=== PATIENT | female | born 1990 | race African-American/Black ===

== ENCOUNTER 2021-09-07 18:04 | Emergency (ER) | payer MEDICAID ==
[~2021-09-07] VITALS: Ht 167.6 cm; Wt 67.4 kg
[2021-09-07 18:08] VITALS: BP 116/66
--- NOTE | 2021-09-07 18:33 | PHYS DOC ---
Past Medical History Past Surgical History: Tubal ligation General Adult EDM: Chief Complaint: VAGINAL PROBLEM HPI: HPI: Patient is a 31 year old female with a history of Bartholin cyst presenting to the ED today complaining of Bartholin cyst to the right labia, symptoms began 2 days ago. She states her MANAGER RENTAL started on clindamycin two days ago but it is not working as fast as it usually does. She states she has a surgery to fix this problem in March 2022. She states she is visiting from [place] and would like to be switched from clindamycin to Bactrim. She states she does not want it to be drained. She is also requesting something for pain. Review of Systems: Review of Systems: Constitutional: Denies fever or chills. [] Female : Reports Bartholin cyst Musculoskeletal: Denies back pain or joint pain. [] Integument: Denies rash. [] Neurologic: Denies headache, focal weakness or sensory changes. [] Psychiatric: Denies depression or anxiety. [] Heart Score: C/O Chest Pain: N/A Risk Factors: Risk Factors: DM, Current or recent (<one month) smoker, HTN, HLP, family history of CAD, obesity. Risk Scores: Score 0 - 3: 2.5% MACE over next 6 weeks - Discharge Home Score 4 - 6: 20.3% MACE over next 6 weeks - Admit for Clinical Observation Score 7 - 10: 72.7% MACE over next 6 weeks - Early Invasive Strategies Physical Exam: PE: Constitutional: Well developed, well nourished, no acute distress, non-toxic appearance. [] Female : Right labia majora inner aspect with a mild sized Bartholin cyst, no erythema, fluctuance noted to the area. Multiple skin deformities noted on the right labia majora from multiple draining of the cyst Skin: Warm, dry, no erythema, no rash. [] Back: No tenderness, no CVA tenderness. [] Extremities: No tenderness, no cyanosis, no clubbing, ROM intact, no edema. [] Neurologic: Alert and oriented X 3, normal motor function, normal sensory function, no focal deficits noted. [] Psychologic: Affect normal, judgement normal, mood normal. [] Current Patient Data: Vital Signs: Vital Signs Date Time Temp Pulse Resp B/P (MAP) Pulse Ox O2 Delivery O2 Flow Rate FiO2 1/25/22 18:08 98.1 83 16 116/66 (83) 98 Room Air 98.1 EKG: EKG: [] Radiology/Procedures: Radiology/Procedures: [] Course & Med Decision Making: Course & Med Decision Making Pertinent Labs and Imaging studies reviewed. (See chart for details) This is a 31-year-old female patient presenting to the ED today for Bartholin cyst. Symptoms began 2 days ago. Has history of Bartholin cysts. She is scheduled to have surgery in March 2022. She is currently on clindamycin, she is from [place]. She is requesting to be switched to Bactrim because she feels clindamycin is not working as fast. Rx given. She refused to have the cyst drained. Tetanus is up-to-date. She will follow-up with her own doctor in [place] when she returns in a week Amira Disclaimer: Amira Disclaimer: This electronic medical record was generated, in whole or in part, using a voice recognition dictation system. Departure Departure Impression: Primary Impression: Bartholin cyst Disposition: HOME / SELF CARE / HOMELESS Condition: STABLE Patient Instructions: Bartholin's Cyst and Abscess-Brief Additional Instructions: You were evaluated for Bartholin cyst. We switched you from clindamycin to Bactrim. Take it as prescribed. Take the pain medicine as needed for pain. Please follow-up with your MANAGER RENTAL as soon as you can Scripts Hydrocodone Bit/Acetaminophen (HYDROCODONE-APAP 5-325 ) 1 Tab Tablet 1 TAB PO PRN Q6HRS PRN for PAIN, #14 TAB 0 Refills Prov: CANDE GRISSOM [employer] MANAGEMENT MANAGER 09/07/21 Sulfamethoxazole/Trimethoprim (BACTRIM DS TABLET) 1 Each Tablet 1 TAB PO BID for 10 Days, #20 TAB 0 Refills Prov: CANDE GRISSOM [employer] MANAGEMENT MANAGER 09/07/21 CANDE GRISSOM [employer] MANAGEMENT MANAGER Sep 07, 2021 18:33
[2021-09-07] MEDS ORDERED: SULF1TAB24 PO (18:45)
[2021-09-07] MEDS ORDERED: HYDR-2761 PO ×2 (19:01→19:05)
== END 2021-09-07 19:13 | disposition home or self-care (01) ==
LOC: ER 18:04
DX: N75.0 Cyst of Bartholin's gland (principal); Z98.51 Tubal ligation status
CPT/HCPCS: 99283